=== PATIENT | female | born 1965 | race American Indian/Alaskan Native ===

== ENCOUNTER 2016-07-19 12:01 | Day surgery (SDC) | payer MEDICARE ==
[~2016-07-19 12:01] MED LIST: ANCEF/STERILE WATER 2 GM/20 ML 2 GM/20 ML SYRINGE IV NR; NACL 0.9% 1000 ML 1,000 ML IV SCH
[2016-07-19] MEDS ORDERED: HEPARIN 10,000 UNITS/10 ML ONE (15:14)
[2016-07-19] MEDS ORDERED: HEPARIN/NS 5000 UNIT/500ML(CATH LAB) 500 ML IR ONE ×2 (15:14→16:45)
[2016-07-19] MEDS ORDERED: ANCEF/STERILE WATER 2 GM/20 ML 2 GM/20 ML SYRINGE IV ONE (15:14)
[2016-07-19] MEDS ORDERED: NACL 0.9% 250ML 250 ML ONE (15:15)
[2016-07-19] MEDS ORDERED: SUBLIMAZE ONE (15:15)
[2016-07-19] MEDS ORDERED: VERSED ONE (15:15)
[2016-07-19] MEDS ORDERED: XYLOCAINE 1%/ EPI 1:100,000 INFILTRATI ONE (15:16)
--- NOTE | 2016-07-19 18:01 | Short Stay Summary ---
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 - Allergies and Medications Current Medications: Allergies No Known Allergies Allergy (Verified 07/19/16 12:33) Home Medications Medication Instructions Recorded Confirmed Last Taken Type ALPRAZolam [Xanax TAB] 0.25 mg PO DAILY 07/19/16 07/19/16 07/18/16 History Carvedilol [Coreg] 6.25 mg PO BID 07/19/16 07/19/16 07/18/16 History Cinacalcet HCl [Sensipar] 90 mg PO QHS 07/19/16 07/19/16 07/18/16 History Digoxin [Lanoxin] 0.125 mg PO DAILY 07/19/16 07/19/16 07/18/16 History Dilayvite 800 mg PO DAILY 07/19/16 07/18/16 History Esomeprazole Magnesium [NexIUM] 40 mg PO QDAY 07/19/16 07/19/16 07/18/16 History Fluticasone [Flonase] 2 spray NS QDAY 07/19/16 07/19/16 07/18/16 History Loratadine [Allergy Relief] 10 mg PO Q48H 07/19/16 07/19/16 07/18/16 History Sevelamer Carbonate [Renvela] 800 mg PO TIDWM 07/19/16 07/19/16 07/18/16 History traMADol [Ultram] 50 mg PO Q4HR PRN 07/19/16 07/19/16 Unknown History Active Medications Cefazolin Sodium (Ancef/Sterile Water 2 Gm/20 Ml) 2 gm in 20 mls @ 80 mls/hr IV PREOP NR PRN Reason: Protocol Stop: 07/19/16 23:00 - Physical exam General appearance: no acute distress HEENT: Other (severe facial and head edema) Lungs: Normal air movement Extremities: abnormal (large LUE AVF) - Brief post op/procedure progress note Date of procedure: 07/19/16 Pre-op diagnosis: SVC syndrome Post-op diagnosis: same Procedure: angioplasty Anesthesia: local (w/ conscious sedation) Surgeon: SANJEEV JASSO Estimated blood loss: minimal Condition: stable - Hospital course Hospital course: Ready for discharge. - Disposition Condition at discharge: Stable Disposition: DC-01 TO HOME OR SELFCARE - Discharge Diagnoses (1) SVC syndrome Status: Acute Short Stay Discharge Plan Activity: advance as tolerated Weight Bearing Status: Weight Bear as Tolerated Diet: renal Wound: keep clean and dry Follow up with: PRIMARY CARE, [Primary Care Provider] - 7 Days
--- NOTE | 2016-07-19 18:12 | Operative Report ---
Operative Report Operative Report: EXAM: 1. Ultrasound-guided access of the left arm AV fistula towards the venous outflow 2. Fistulogram 3. Placement of a 6 [place]yanese sheath which was upsized to a 7 [place]ese sheath 4. Angioplasty of the superior vena cava with a 9 mm angioplasty balloon 5. Angioplasty of the superior vena cava with an 8 mm cutting angioplasty balloon 6. Angioplasty of the superior vena cava with a 10 mm conquest angioplasty balloon 7. Angioplasty of the cephalic arch with a 10 mm conquest angioplasty balloon 8. Angioplasty of the mid cephalic vein with a 10 mm conquest angioplasty balloon DATE: 07/19/16 CONSULTING NETWORKING ENGINEER: SANJEEV JASSO MD INDICATION: 50-year-old female with left upper extremity AV fistula with SVC syndrome. MEDICATIONS: Please see nursing report for full details. DEVICES: 8 mm cutting angioplasty balloon 9 mm angioplasty balloon 10 mm conquest angioplasty balloon CONTRAST: Please see Lab report for full details. PROCEDURE: The risks, benefits, and alternatives were discussed with the patient; written informed consent was obtained. The patient's left upper extremity was prepped and draped in a sterile fashion. Ultrasound was used to evaluate the left upper extremity AV fistula which was patent. Under direct ultrasound guidance, the left upper extremity AV fistula was accessed with a 21-gauge micropuncture needle. 0.018 wire was passed to the AV fistula. Needle was exchanged for transitional dilator. Transitional dilator was exchanged over 0.035 inch wire for 6 [place]ese sheath. Digital subtraction angiography was performed demonstrating a left upper extremity brachiocephalic emilie fistula with numerous peripheral aneurysms. The midportion of the cephalic vein has a focal 40% narrowing. There is a focal 40 % narrowing in the cephalic arch. The left innominate vein is patent. The SVC is not filling directly, and the azygous vein is filling through collaterals. The sheath was then upsized to a 7 [place] 45 cm [place] destination positioned in the left innominate vein. Digital subtraction angiography was performed demonstrating the SVC occlusion. Using a vertebral catheter and a Glidewire advantage, the SVC occlusion was crossed. Digital subtraction angiography was performed in the SVC confirming patency of the SVC a few centimeters below the azygous vein. The SVC at the level of the azygous vein was occluded. Wire was passed into the IVC. 9 mm angioplasty balloon was advanced over the wire and just perform angioplasty of the superior vena cava. This was performed at [facility] pressure and slightly above burst pressure, but the focal narrowings persisted. Wire was exchanged for a 0.018 inch treasure wire and 8 mm cutting balloon was advanced over the wire and used to perform cutting angioplasty at the area of focal narrowing. Digital subtraction angiography demonstrated improved flow without any extravasation or pseudoaneurysm. Afterwards, wire was exchanged for 0.035 inch Glidewire advantage and 10 mm angioplasty balloon was advanced over the wire. Conquest balloon was used to perform angioplasty of the SVC at high pressure for prolonged period of time. Digital subtraction angiography was performed demonstrating improved flow into the SVC. There is still a focal narrowing at the level of the azygous vein, but there is now flow through the SVC. 10 mm angioplasty balloon was then used to perform angioplasty of the cephalic arch and the mid cephalic vein. Digital subtraction angiography demonstrated resolution of the narrowing at these areas. 7 Gu[place]ese sheath was then removed and the site was closed with 3-0 Vicryl. Patient tolerated the procedure well. No immediate postprocedural complication. FINDINGS: Please see procedure note above IMPRESSION: 1. Successful cutting balloon angioplasty and high pressure angioplasty balloon angioplasty of the SVC with yarsanism of flow into the SVC. 2. Angioplasty of the midportion of the cephalic vein and cephalic arch with a 10 mm angioplasty balloon.
[2016-07-19 18:23] VITALS: BP 158/100
--- NOTE | 2016-07-20 07:47 | Vascular Lab Report ---
MISCELLANEOUS VESSEL IDENTIFICATION: The arteriovenous access was identified in the left upper extremity and under real-time ultrasound guidance was cannulated. IMPRESSION: Successful ultrasound guided cannulation of the arteriovenous access site.
== END 2016-07-19 18:35 | disposition home or self-care (01) ==
LOC: OPU 12:01
PROVIDERS: ATTEND Radiology Diagnostic Radiology
DX: T82.898A Other specified complication of vascular prosthetic devices, implants and grafts, initial encounter (principal); I12.0 Hypertensive chronic kidney disease with stage 5 chronic kidney disease or end stage renal disease; N18.6 End stage renal disease; N17.9 Acute kidney failure, unspecified; Z99.2 Dependence on renal dialysis; Z79.899 Other long term (current) drug therapy; Z98.51 Tubal ligation status; Z98.890 Other specified postprocedural states; Z83.3 Family history of diabetes mellitus
CPT/HCPCS: 36415; 36902; 76937; 84132; C1725; C1751; C1769; C1887; C1894; J0690; J1644; J2250; J3010; J7050; Q9967

== ENCOUNTER 2018-05-23 06:39 | Day surgery (SDC) | payer MEDICARE ==
--- NOTE | 2018-05-22 15:35 | Anesthesia Consultation ---
Anesthesia Consult and Med Hx - Airway ROM Head & Neck: Adequate Mental/Hyoid Distance: Adequate Mallampati Class: Class II Intubation Access Assessment: Probably Good - Pulmonary Exam CTA: Yes - Cardiac Exam Cardiac Exam: RRR - Pre-Operative Health Status ASA Pre-Surgery Classification: ASA4 Proposed Anesthetic Plan: General, Spinal - Pre-Anesthesia Comment Pre-Anesthesia Comments: Discussed SAB and GETA. Risks, Benefits, Options explained. Pt prefers to be knocked out and not know anything. Agrees to either - Pulmonary Hx Smoking: Yes (1 pack / week) Hx Respiratory Symptoms: Yes ((+) TB - Resolved w/ Meds.Chronic bronchitis, no problems in several months) Hx Pneumonia: Yes (Several years. Episode when diagnosed with HIV) Hx Sleep Apnea: Yes - Cardiovascular System Hx Hypertension: Yes - Central Nervous System Hx Psychiatric Problems: Yes (Schizophrenia) - Endocrine Hx Renal Disease: Yes Hx End Stage Renal Disease: Yes Hx Liver Disease: Yes (Hep C) - Hematic Hx Anemia: Yes - Other Systems Hx Alcohol Use: Yes (1st stated 32 beers/week. Changed account to case/month) Hx Substance Use: Yes (Former cocaine use. Quit ~1yr ago) Hx Cancer: No Hx Obesity: No - Additional Comments Anesthesia Medical History Comments: Pt with h/o chronic pain hips and knees. Ambulatory with crutches. H/O: (+)HIV, (+)TB, (+) Hep C, (+) Cocaine, alcohol, and smoker, Anemia, HTN, Bronchitis
[2018-05-23 07:38] LABS: INR 0.98 (0.87-1.13)
[2018-05-23] MEDS ORDERED: ANCEF/STERILE WATER 2 GM/20 ML 2 GM/20 ML SYRINGE IV ONE (08:21)
[2018-05-23] MEDS ORDERED: HEPARIN 10,000 UNITS/10 ML ONE (08:21)
[2018-05-23] MEDS ORDERED: HEPARIN/NS 5000 UNIT/500ML(CATH LAB) 1,000 ML IR ONE (08:21)
[2018-05-23] MEDS ORDERED: XYLOCAINE 2% INFILTRATI ONE (08:21)
[2018-05-23] MEDS: NACL 0.9% 500 ML 500 ML IV SCH ×2 (08:40→09:20)
--- NOTE | 2018-05-23 09:00 | Short Stay Summary ---
Short Stay Documentation Date of service: 05/23/18 Narrative H&P: 52 year old female with ESRD and AVF malfunction with SVC syndrome. - History Principal diagnosis: AVF malfunction Past Medical History: CAD (s/p stent), diabetes, dialysis, GERD, other (chronic SVC syndrome) Past Surgical History: Other (AVF creation ; coronary stenting) Social history: lives with family - Allergies and Medications Current Medications: Allergies No Known Allergies Allergy (Verified 07/19/16 12:33) Home Medications Medication Instructions Recorded Confirmed Last Taken Type ALPRAZolam [Xanax TAB] 0.25 mg PO DAILY 07/19/16 05/23/18 05/19/18 History 0.25mg Fluticasone [Flonase] 2 spray NS QDAY 07/19/16 05/23/18 05/22/18 History 2 sprays Loratadine [Allergy Relief] 10 mg PO Q48H 07/19/16 05/23/18 05/22/18 History 10mg Sevelamer Carbonate [Renvela] 800 mg PO TIDWM 07/19/16 05/23/18 05/22/18 History 800mg Albuterol Sulfate [Albuterol 2 puff INHALATION 4XD PRN 05/23/18 05/23/18 04/26/18 History Sulfate Hfa] 2 p\uffs Aspirin EC [Aspirin Enteric Coated 81 mg PO DAILY 05/23/18 05/23/18 05/22/18 Hi story TAB] 81mg Atorvastatin [Lipitor] 80 mg PO DAILY 05/23/18 05/23/18 05/22/18 History 80mg Lisinopril [Prinivil] 5 mg PO DAILY 05/23/18 05/23/18 05/21/18 History 5mg Loratadine [Claritin] 10 mg PO DAILY 05/23/18 05/23/18 05/22/18 History 10mg Metoprolol [Lopressor TAB] 0.5 tab PO BID 05/23/18 05/23/18 05/22/18 History 0.5mg Mv,Darrion,Min/Iron/Folic Acid/Lut 1 tab PO DAILY 05/23/18 05/23/18 05/22/18 History [Complete Multi Tablet] 1 tab Ticagrelor [Brilinta] 90 mg PO BID 05/23/18 05/23/1805/22/19 History 90mg hydrOXYzine HCL [Atarax] 25 mg PO HS PRN 05/23/18 05/23/18 05/19/18 History 25mg traMADol [Ultram 50 MG tab] 50 mg PO Q6H 05/23/18 05/23/18 05/22/18 History 50mg Active Medications Sodium Chloride (Nacl 0.9% 500 Ml) 500 mls @ 50 mls/hr IV DIRECT LUIS ARMANDO Last Admin: 05/23/18 08:40 Dose: 50 mls/hr Documented by: - Physical exam General appearance: other (mild SVC syndrome) Lungs: Normal air movement Gastrointestinal: normal Extremities: normal temperature, normal color, abnormal (large aneurysmal AVF, stable) - Brief post op/procedure progress note Date of procedure: 05/23/18 Pre-op diagnosis: ESRD, AVF malfunction Post-op diagnosis: same Procedure: angioplasty Anesthesia: local (w/ conscious sed) Surgeon: SANJEEV JASSO Estimated blood loss: minimal Condition: stable - Hospital course Hospital course: Tolerated procedure well. - Disposition Condition at discharge: Stable Disposition: DC-01 TO HOME OR SELFCARE - Discharge Diagnoses (1) Malfunction of arteriovenous shunt Status: Acute (2) SVC syndrome Status: Acute Short Stay Discharge Plan Activity: advance as tolerated Weight Bearing Status: Weight Bear as Tolerated Diet: renal Wound: keep clean and dry Additional Instructions: follow up with Primary Medical Doctor in 1 week, return to Emergency Room(ER) for medical emergency. Follow up with: BENIGNO ABEL MD [Primary Care Provider] - 7 Days Forms: AVG Arteriogram D/CInstruction
[2018-05-23] MEDS: SUBLIMAZE ONE ×2 (09:20→09:45)
[2018-05-23] MEDS: VERSED ONE ×2 (09:20→09:45)
[2018-05-23] MEDS ORDERED: BENADRYL ONE (09:37)
[2018-05-23] MEDS ORDERED: SOLU-Medrol ONE (09:38)
[2018-05-23 10:56] VITALS: BP 168/105
--- NOTE | 2018-05-23 11:29 | Operative Report ---
Operative Report Operative Report: EXAM: 1. Ultrasound guided access of the AV fistula towards the venous outflow 2. Fistulogram. 3. Selection of the IVC. 4. Angioplasty of the superior SVC and peripheral left innominate vein with a 8 mm x 2 cm cutting angioplasty balloon and 12 mm x 60 mm angioplasty balloon 5. Angioplasty of the cephalic arch (central cephalic vein) with a 12 mm x 60 mm angioplasty DATE: 05/23/18 GREETING CARD EDITOR: SANJEEV JASSO MD INDICATION: Symptomatic SVC syndrome with AV fistula malfunction MEDICATIONS: Please see nursing report for full details. DEVICES: 8 mm x 2 cm cutting angioplasty balloon 12 mm x 6 cm angioplasty balloon PROCEDURE: The risks, benefits, and alternatives of the procedure were discussed and written informed consent was obtained. The patient was transported in stable condition to the angiography suite. The patient's left arm AV fistula was assessed by ultrasound and was patent. The patient was prepped and draped in a sterile fashion. Under ultrasound guidance, the left arm AV brachiocephalic fistula was accessed with a 21-gauge micropuncture needle. The area was anesthetized prior to access. 0.018 inch wire was advanced through the micropuncture needle into the fistula and then the needle was exchanged for a 5 [place] transitional dilator. The inner dilator and wire were removed and a 0.035 inch wire was advanced through the venous outflow. The transitional dilator was exchanged for a 7 [place] short sheath. Fistulogram was performed of the venous outflow and central veins. The mid cephalic vein was patent. The central cephalic vein had a 60% narrowing (at the cephalic arch). There were numerous collaterals arising from the left subclavian and innominate vein. The left subclavian and mid and peripheral innominate vein were patent. The central portion of the left innominate vein and the superior portion of the SVC was 90% narrowed. The rest of the SVC was patent. 8 mm x 2 cm cutting angioplasty balloon was used to perform cutting angioplasty of the SVC and central left innominate vein. 12 mm x 6 cm angioplasty balloon was used to perform angioplasty of the SVC and central left innominate vein and then the cephalic arch. Digital subtraction angiography demonstrated 20-30% residual narrowing of the left innominate vein/superior portion of the SVC and 10-20% residual narrowing of the cephalic arch. The wire was removed and the site was closed with a 3-0 Vicryl suture. The sheath was then removed. Hemostasis was achieved with slight manual c ompression. The patient was transported from the angiography suite to the floor in stable condition. IMPRESSION: 1. Successful central dialysis access angioplasty. 2. Successful peripheral dialysis access angioplasty
== END 2018-05-23 11:30 | disposition home or self-care (01) ==
LOC: CATHLABREC 06:39
PROVIDERS: ATTEND Radiology Diagnostic Radiology
DX: T82.898A Other specified complication of vascular prosthetic devices, implants and grafts, initial encounter (principal); T82.591A Other mechanical complication of surgically created arteriovenous shunt, initial encounter; I12.0 Hypertensive chronic kidney disease with stage 5 chronic kidney disease or end stage renal disease; N18.6 End stage renal disease; G47.30 Sleep apnea, unspecified; K21.9 Gastro-esophageal reflux disease without esophagitis; F41.9 Anxiety disorder, unspecified; E78.00 Pure hypercholesterolemia, unspecified; F17.210 Nicotine dependence, cigarettes, uncomplicated; Z79.899 Other long term (current) drug therapy; Z79.82 Long term (current) use of aspirin; Z99.2 Dependence on renal dialysis; Z72.89 Other problems related to lifestyle; Z98.890 Other specified postprocedural states; Z95.5 Presence of coronary angioplasty implant and graft; Z86.2 Personal history of diseases of the blood and blood-forming organs and certain disorders involving the immune mechanism; Y83.8 Other surgical procedures as the cause of abnormal reaction of the patient, or of later complication, without mention of misadventure at the time of the procedure; Y92.89 Other specified places as the place of occurrence of the external cause
CPT/HCPCS: 36415; 36902; 76937; 84132; 85610; 85730; 99156; 99157; C1725; C1751; C1769; C1894; J0690; J1200; J1644; J2250; J2930; J3010; J7040; Q9967

== ENCOUNTER 2018-08-22 08:55 | Day surgery (SDC) | payer MEDICARE ==
[2018-08-22] MEDS ORDERED: HEPARIN/NS 5000 UNIT/500ML(CATH LAB) 1,000 ML IR ONE (09:56)
[2018-08-22] MEDS ORDERED: VERSED ONE ×2 (09:56→11:29)
[2018-08-22] MEDS ORDERED: SUBLIMAZE ONE (09:56)
[2018-08-22] MEDS ORDERED: HEPARIN 10,000 UNITS/10 ML ONE (09:57)
[2018-08-22] MEDS ORDERED: ANCEF/STERILE WATER 2 GM/20 ML 0 GM/0 ML SYRINGE IV ONE (09:57)
[2018-08-22] MEDS ORDERED: XYLOCAINE 2% INFILTRATI ONE (09:57)
[2018-08-22] MEDS ORDERED: SOLU-Medrol ONE (10:02)
[2018-08-22] MEDS ORDERED: BENADRYL ONE (10:02)
[2018-08-22] MEDS ORDERED: PEPCID IV ONE (10:05)
[2018-08-22] MEDS ORDERED: NACL 0.9% 500 ML 500 ML ONE (10:22)
[2018-08-22] MEDS ORDERED: APRESOLINE ONE (11:13)
--- NOTE | 2018-08-22 11:42 | Short Stay Summary ---
Short Stay Documentation Date of service: 08/22/18 Narrative H&P: 52 year old female with recurrent SVC syndrome and ESRD who presents for angioplasty. - History Principal diagnosis: SVC syndrome, AVF malfunction H&P: obtained from office - Allergies and Medications Current Medications: Allergies No Known Allergies Allergy (Verified 07/19/16 12:33) Home Medications Medication Instructions Recorded Confirmed Last Taken Type ALPRAZolam [Xanax TAB] 0.25 mg PO DAILY 07/19/16 08/22/18 08/21/18 History Fluticasone [Flonase] 2 spray NS QDAY PRN 07/19/16 08/22/18 1 Week Ago History ~08/15/18 Sevelamer Carbonate [Renvela] 800 mg PO TIDWM 07/19/16 08/22/18 08/21/18 History Albuterol Sulfate [Albuterol 2 puff INHALATION 4XD PRN 05/23/18 08/22/18 08/19/18 History Sulfate Hfa] Aspirin EC 81 mg PO DAILY 05/23/18 08/22/18 08/21/18 History Atorvastatin [Lipitor] 80 mg PO DAILY 05/23/18 08/22/18 08/21/18 History Lisinopril [Prinivil] 5 mg PO DAILY 05/23/18 08/22/18 08/21/18 History Loratadine [Claritin] 10 mg PO DAILY 05/23/18 08/22/18 08/21/18 History Metoprolol [Lopressor TAB] 0.5 tab PO BID 05/23/18 08/22/18 08/21/18 History Mv,Darrion,Min/Iron/Folic Acid/Lut 1 tab PO DAILY 05/23/18 08/22/18 08/21/18 History [Complete Multi Tablet] Ticagrelor [Brilinta] 90 mg PO BID 05/23/18 08/22/18 08/21/18 History hydrOXYzine HCL [Atarax] 25 mg PO HS PRN 05/23/18 08/22/18 08/21/18 History traMADol [Ultram 50 MG tab] 50 mg PO Q6H 05/23/18 08/22/18 08/21/18 History - Physical exam General appearance: no acute distress Lungs: Normal air movement (some coughing with supine position) Gastrointestinal: normal Extremities: normal temperature, normal color - Brief post op/procedure progress note Date of procedure: 08/22/18 Pre-op diagnosis: ESRD with SVC syndrome and AVF malfunction Post-op diagnosis: same Procedure: Peripheral dialysis access angioplasty Central dialysis access angioplasty Anesthesia: local (w/ conscious sedation) Surgeon: SANJEEV JASSO Estimated blood loss: minimal Condition: stable - Hospital course Hospital course: Ready for discharge after 1 hr - Disposition Condition at discharge: Stable Disposition: [place]-01 TO HOME OR SELFCARE - Discharge Diagnoses (1) Malfunction of arteriovenous shunt Status: Acute (2) SVC syndrome Status: Acute Short Stay Discharge Plan Activity: advance as tolerated Weight Bearing Status: Weight Bear as Tolerated Diet: renal Wound: keep clean and dry Follow up with: BENIGNO ABEL MD [Primary Care Provider] - 7 Days
--- NOTE | 2018-08-22 11:49 | Operative Report ---
Operative Report Operative Report: EXAM: 1. Ultrasound guided access of the AV fistula towards the venous outflow 2. Fistulogram. 3. Selection of the IVC. 4. Angioplasty of the superior SVC and peripheral left innominate vein with a 8 mm x 2 cm cutting angioplasty balloon and 12 mm x 60 mm angioplasty balloon 5. Angioplasty of the cephalic arch (central cephalic vein) with a 8 mm x 2 cm cutting angioplasty balloon and 12 mm x 60 mm angioplasty DATE: 08/22/18 INTERNET MARKETING EXECUTIVE: SANJEEV JASSO MD INDICATION: Symptomatic SVC syndrome with AV fistula malfunction MEDICATIONS: Please see nursing report for full details. DEVICES: 8 mm x 2 cm cutting angioplasty balloon 12 mm x 6 cm angioplasty balloon PROCEDURE: The risks, benefits, and alternatives of the procedure were discussed and written informed consent was obtained. The patient was transported in stable condition to the angiography suite. The patient's left arm AV fistula was a ssessed by ultrasound and was patent. The patient was prepped and draped in a sterile fashion. Under ultrasound guidance, the left arm AV brachiocephalic fistula was accessed with a 21-gauge micropuncture needle. The area was anesthetized prior to access. 0.018 inch wire was advanced through the micropuncture needle into the fistula and then the needle was exchanged for a 5 [place] transitional dilator. The inner dilator and wire were removed and a 0.035 inch wire was advanced through the venous outflow. The transitional dilator was exchanged for a 7 [place] short sheath. Fistulogram was performed of the venous outflow and central veins. The central cephalic vein had a 60% narrowing (at the cephalic arch). There were numerous collaterals arising from the left subclavian and innominate vein. The left subclavian and mid and peripheral innominate vein were patent. The central portion of the left innominate vein and the superior portion of the SVC was 90% narrowed. The rest of the SVC was patent. 8 mm x 2 cm cutting angioplasty balloon was used to perform cutting angioplasty of the SVC and central left innominate vein and cephalic arch. 12 mm x 6 cm angioplasty balloon was used to perform angioplasty of the SVC and central left innominate vein and then the cephalic arch. Digital subtraction angiography demonstrated 20-30% residual narrowing of the left innominate vein/superior portion of the SVC and 20% residual narrowing of the cephalic arch. The wire was removed and the site was closed with a 3-0 Vicryl suture. The sheath was then removed. Hemostasis was achieved with slight manual compression. The patient was transported from the angiography suite to the floor in stable condition. IMPRESSION: 1. Successful central dialysis access angioplasty. 2. Successful peripheral dialysis access angioplasty
[2018-08-22 12:58] VITALS: BP 139/89
== END 2018-08-22 13:05 | disposition home or self-care (01) ==
LOC: CATHLABREC 08:55
PROVIDERS: ATTEND Radiology Diagnostic Radiology
DX: T82.590A Other mechanical complication of surgically created arteriovenous fistula, initial encounter (principal); I12.0 Hypertensive chronic kidney disease with stage 5 chronic kidney disease or end stage renal disease; N18.6 End stage renal disease; I87.1 Compression of vein; E78.00 Pure hypercholesterolemia, unspecified; G47.30 Sleep apnea, unspecified; K21.9 Gastro-esophageal reflux disease without esophagitis; F41.9 Anxiety disorder, unspecified; Z98.890 Other specified postprocedural states; Z79.899 Other long term (current) drug therapy; Z79.82 Long term (current) use of aspirin; Z72.89 Other problems related to lifestyle; Z86.2 Personal history of diseases of the blood and blood-forming organs and certain disorders involving the immune mechanism; Y83.8 Other surgical procedures as the cause of abnormal reaction of the patient, or of later complication, without mention of misadventure at the time of the procedure; Y92.89 Other specified places as the place of occurrence of the external cause
CPT/HCPCS: 36415; 36902; 76937; 84132; 99156; 99157; C1725; C1769; C1894; J0360; J1200; J1644; J2250; J2930; J3010; J7040; J0690; Q9967

== ENCOUNTER 2019-12-09 07:11 | Day surgery (SDC) | payer MEDICARE ==
[2019-12-09] MEDS ORDERED: SODIUM CHLORIDE 0.9% 500 ML 500 ML ONE (08:59)
[2019-12-09] MEDS ORDERED: methylPREDNISolone Sod Succinate 125 MG/2 ML INJ ONE (09:38)
[2019-12-09] MEDS ORDERED: diphenhydrAMINE 50 MG/ML VIAL ONE (09:38)
[2019-12-09] MEDS ORDERED: MIDAZOLAM 2 MG/2 ML INJ ONE (09:39)
[2019-12-09] MEDS ORDERED: fentaNYL 100 MCG/2 ML INJ ONE (09:39)
[2019-12-09] MEDS ORDERED: LIDOCAINE 1%/EPINEPHRINE 1:100,000 VIAL (20 ML) INFILTRATI ONE (09:40)
[2019-12-09] MEDS ORDERED: HEPARIN 10,000 UNITS/10 ML VIAL ONE (09:40)
[2019-12-09] MEDS ORDERED: HEPARIN/NS 5000 UNIT/500ML 1,000 ML IR ONE (09:40)
[2019-12-09] MEDS ORDERED: diphenhydrAMINE 50 MG/ML VIAL IV ONE (10:00)
[2019-12-09] MEDS ORDERED: FAMOTIDINE 20 MG/2 ML INJ IV ONE (10:00)
[2019-12-09] MEDS ORDERED: methylPREDNISolone Sod Succinate 125 MG/2 ML INJ IV ONE (10:00)
[2019-12-09] MEDS ORDERED: SODIUM CHLORIDE 0.9% 500 ML 500 ML IV SCH (10:00)
--- NOTE | 2019-12-09 20:45 | Short Stay Summary ---
Short Stay Documentation Date of service: 12/09/19 Narrative H&P: 54-year-old female with end-stage renal disease and left upper extremity AV access malfunction with recurrent SVC syndrome with head and neck swelling who presents for evaluation and treatment. - History Principal diagnosis: AV fistula malfunction Past Medical History: dialysis, ESRD Past Surgical History: Other (AV access fistulograms and surgery) Social history: no significant social history - Allergies and Medications Current Medications: Allergies No Known Allergies Allergy (Verified 07/19/16 12:33) Home Medications Medication Instructions Recorded Confirmed Last Taken Type ALPRAZolam [Xanax TAB] 0.25 mg PO DAILY 07/19/16 01/28/19 01/27/19 History .25mg Fluticasone [Flonase] 2 spray NS QDAY PRN 07/19/16 01/28/19 11/01/18 History 2 sprays Albuterol Sulfate [Albuterol 2 puff INHALATION 4XD PRN 05/23/18 01/28/19 01/22/19 History Sulfate Hfa] 2 puffs Aspirin EC [Halfprin EC] 81 mg PO DAILY 05/23/18 01/28/19 01/27/19 History 81 mg Atorvastatin [Lipitor] 80 mg PO DAILY 05/23/18 01/28/19 01/27/19 History 80 mg Loratadine (Nf) [Claritin (Nf)] 10 mg PO DAILY 05/23/18 01/28/19 10/13/18 History 10 mg Metoprolol [Lopressor TAB] 0.5 tab PO BID 05/23/18 01/28/19 01/27/19 History 12.5mg Mv,Darrion,Min/Iron/Folic Acid/Lut 1 tab PO DAILY 05/23/18 01/28/19 01/26/19 History [Complete Multi Tablet] 1 tab Ticagrelor [Brilinta] 90 mg PO BID 05/23/18 01/28/19 01/27/19 History 90 mg lisinopriL [Prinivil] 5 mg PO DAILY 05/23/18 01/28/19 01/27/19 History 5 mg traMADoL [Ultram 50 MG tab] 50 mg PO Q6H 05/23/18 01/28/19 01/26/19 History 50 mg Ferric Citrate (Nf) [Auryxia] 4 tab PO AC 01/28/19 01/28/19 01/27/19 History 4 tabs Hydralazine HCl 50 mg PO DAILY 01/28/19 01/28/19 01/27/19 History 50 mg NIFEdipine XL [Procardia Xl] 60 mg PO DAILY 01/28/19 01/28/19 01/27/19 History 60 mg carvediloL [Coreg] 25 mg PO BID 01/28/19 01/28/19 01/27/19 History 25 mg - Physical exam General appearance: mild distress (Head and neck swelling) HEENT: Other (head and neck swelling) Lungs: Other (good air movement) Gastrointestinal: normal Extremities: normal temperature, normal color - Brief post op/procedure progress note Date of procedure: 12/10/19 Pre-op diagnosis: AVF malfunction Post-op diagnosis: same Procedure: 1. Ultrasound-guided access of the left arm cephalic vein of the AV fistula 2. Fistulogram 3. Selection of the SVC with angiography. 4. Angioplasty of the left distal innominate vein/proximal SVC with a 8 mm x 2 cm cutting angioplasty balloon and then a 12 mm x 4 cm iNPACT balloon 5. Angioplasty of the cephalic arch with a 12 mm x 4 cm iNPACT balloon Anesthesia: local Surgeon: SANJEEV JASSO Estimated blood loss: minimal Condition: stable - Hospital course Hospital course: Tolerated the procedure well. No immediate postprocedural complications. - Disposition Condition at discharge: Stable Disposition: DC-01 TO HOME OR SELFCARE - Discharge Diagnoses (1) ESRD (end stage renal disease) on dialysis Status: Acute (2) Malfunction of arteriovenous shunt Status: Acute (3) SVC syndrome Status: Acute Short Stay Discharge Plan Activity: advance as tolerated Weight Bearing Status: Weight Bear as Tolerated Diet: renal Wound: keep clean and dry Follow up with: BENIGNO ABEL MD [Primary Care Provider] - 7 Days
--- NOTE | 2019-12-09 20:45 | Operative Report ---
Operative Report Operative Report: 1. Ultrasound guided access of the AV fistula towards the venous outflow 2. Fistulogram. 3. Selection of the IVC. 4. Angioplasty of the superior SVC and peripheral left innominate vein with a 8 mm x 2 cm cutting angioplasty balloon and 12 mm x 40 mm iNPACT balloon 5. 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 DEVICES: 8 mm x 2 cm cutting angioplasty balloon 12 mm x 4 cm iNPACT angioplasty balloon PROCEDURE: The risks, benefits, and alternatives of the procedure were discussed and written informed consent was obtained. The patient was transported in stable condition to the angiography suite. The patient's left arm AV fistula was assessed by ultrasound and was patent. The patient was prepped and draped in a sterile fashion. Under ultrasound guidance, the left arm AV brachiocephalic fistula was accessed with a 21-gauge micropuncture needle. The area was anesthetized prior to access. 0.018 inch wire was advanced through the micropuncture needle into the fistula and then the needle was exchanged for a 5 Moroccan transitional dilator. The inner dilator and wire were removed and a 0.035 inch wire was advanced through the venous outflow. The transitional dilator was exchanged for a 7 Moroccan short sheath. Fistulogram was performed of the venous outflow and central veins. The central cephalic vein had a 50% narrowing (at the cephalic arch). There were numerous collaterals arising from the left subclavian and innominate vein. The left subclavian and mid and peripheral innominate vein were patent. The central portion of the left innominate vein and the superior portion of the SVC was 80% narrowed. The rest of the SVC was patent. 8 mm x 2 cm cutting angioplasty balloon was used to perform cutting angioplasty of the SVC and central left innominate vein. Wire was exchanged for a Glidewire Advantage. Sheath was then upsized for a 9 Fr sheath. 12 mm x 4 cm iNPACT angioplasty balloon was used to perform angioplasty of the SVC and central left innominate vein and then the cephalic arch. Digital subtraction angiography demonstrated 30% residual narrowing of the left innominate vein/superior portion of the SVC and 20% residual narrowing of the cephalic arch. The wire was removed and the site was closed with a 3-0 Vicryl suture. The sh eath was then removed. Hemostasis was achieved with slight manual compression. The patient was transported from the angiography suite to the floor in stable condition. IMPRESSION: 1. Successful central dialysis access angioplasty. 2. Successful peripheral dialysis access angioplasty
[2019-12-11 14:33] LABS: BUN/Creatinine Ratio 4; Blood Urea Nitrogen 46 mg/dL (7-17); Calcium 10.7 mg/dL (8.4-10.2)
== END 2019-12-09 07:12 | disposition home or self-care (01) ==
LOC: CATHLABREC 07:11
PROVIDERS: ATTEND Surgery Vascular Surgery
DX: T82.591A Other mechanical complication of surgically created arteriovenous shunt, initial encounter (principal); I12.0 Hypertensive chronic kidney disease with stage 5 chronic kidney disease or end stage renal disease; I87.1 Compression of vein; N18.6 End stage renal disease; K21.9 Gastro-esophageal reflux disease without esophagitis; G47.30 Sleep apnea, unspecified; F41.9 Anxiety disorder, unspecified; Z79.899 Other long term (current) drug therapy; Z79.82 Long term (current) use of aspirin; Z87.01 Personal history of pneumonia (recurrent); Z98.890 Other specified postprocedural states; Z72.89 Other problems related to lifestyle; Z95.5 Presence of coronary angioplasty implant and graft; Z86.2 Personal history of diseases of the blood and blood-forming organs and certain disorders involving the immune mechanism
CPT/HCPCS: 36415; 36902; 36907; 80048; C1725; C1769; C1894; J1200; J1644; J2930; J7040; J2250; J3010; Q9967

== ENCOUNTER 2020-10-14 10:14 | Day surgery (SDC) | payer MEDICARE ==
[2020-10-14] MEDS ORDERED: SODIUM CHLORIDE 0.9% 500 ML 500 ML IV SCH (11:00)
--- NOTE | 2020-10-14 13:51 | Short Stay Summary ---
Short Stay Documentation Date of service: 10/14/20 - History Principal diagnosis: Malfunctioning dialysis access Past Medical History: dialysis, ESRD Past Surgical History: Other (Left upper arm AV fistula with central venous stenosis) Social history: no significant social history - Allergies and Medications Current Medications: Allergies No Known Allergies Allergy (Verified 07/19/16 12:33) Home Medications Medication Instructions Recorded Confirmed Last Taken Type ALPRAZolam [Xanax TAB] 0.25 mg PO DAILY 07/19/16 10/14/20 10/13/20 History 0.25mg Albuterol Sulfate [Albuterol 2 puff INHALATION 4XD PRN 05/23/18 10/14/20 10/12/20 History Sulfate Hfa] 2 puffs Aspirin EC [Halfprin EC] 81 mg PO DAILY 05/23/18 10/14/20 10/13/20 History 81 mg Atorvastatin [Lipitor] 80 mg PO DAILY 05/23/18 10/14/20 10/13/20 History 80 mg Mv,Darrion,Min/Iron/Folic Acid/Lut 1 tab PO DAILY 05/23/18 10/14/20 10/09/20 History [Complete Multi Tablet] 1 tab lisinopriL [Prinivil] 5 mg PO DAILY 05/23/18 10/14/20 10/13/20 History 5 mg traMADoL [Ultram 50 MG tab] 50 mg PO Q6H 05/23/18 10/14/20 10/13/20 History 50 mg Hydralazine HCl 50 mg PO DAILY 01/28/19 10/14/20 10/13/20 History 50 mg NIFEdipine XL [Procardia Xl] 60 mg PO DAILY 01/28/19 10/14/20 10/13/20 History 60 mg carvediloL [Coreg] 25 mg PO BID 01/28/19 10/14/20 10/13/20 History 1000 Active Medications Sodium Chloride (Nacl 0.9% 500 Ml) 500 mls @ 50 mls/hr IV DIRECT LUIS ARMANDO - Physical exam General appearance: no acute distress HEENT: Other (Head and neck swelling) Lungs: Normal air movement Breasts: deferred Heart: Regular rate Gastrointestinal: normal Female Genitourinary: deferred Rectal Exam: deferred Extremities: abnormal (Left arm fistula with multiple pseudoaneurysms) Neurological: Normal speech, Normal tone - Brief post op/procedure progress note Date of procedure: 10/14/20 Pre-op diagnosis: Central venous stenosis, malfunctioning dialysis access Post-op diagnosis: same Procedure: Left upper arm fistulogram with central and peripheral venoplasty Anesthesia: local Surgeon: SANJEEV COLUNGA Estimated blood loss: minimal Pathology: none Condition: stable - Disposition Condition at discharge: Good Disposition: 01 HOME / SELF CARE / HOMELESS Short Stay Discharge Plan Activity: advance as tolerated Weight Bearing Status: Weight Bear as Tolerated Diet: regular Wound: keep clean and dry, per your surgeon's advice Follow up with: BENIGNO ABEL MD [Primary Care Provider] - 7 Days
[2020-10-14] MEDS ORDERED: MIDAZOLAM 2 MG/2 ML INJ ONE (15:19)
[2020-10-14] MEDS ORDERED: fentaNYL 100 MCG/2 ML INJ ONE (15:19)
[2020-10-14] MEDS ORDERED: HEPARIN 10,000 UNITS/10 ML VIAL ONE (15:21)
[2020-10-14] MEDS ORDERED: LIDOCAINE (2%) 20 MG/1 ML VIAL 20 ML MDV INFILTRATI ONE (15:24)
[2020-10-14] MEDS ORDERED: HEPARIN/NS 5000 UNIT/500ML 500 ML IR ONE ×2 (15:28→16:03)
[2020-10-14] MEDS ORDERED: ceFAZolin/Water 2 GM/20 ML 2 GM/20 ML SYRINGE IV ONE (15:28)
--- NOTE | 2020-10-14 16:26 | Operative Report ---
Operative Report Operative Report: Exam: Left upper arm fistulogram with central and peripheral venoplasty Clinical indication: Patient with history of end-stage renal disease on hemodialysis through a left upper arm brachiocephalic fistula with cephalic arch and central venous stenosis Date: 10/14/2020 Procedure: Following an explanation of the risks, benefits and alternatives; written informed consent was obtained. The patient was brought to the angiographic suite and placed in supine position on the examination table. Initial ultrasound evaluation of the fistula demonstrated multiple large pseudoaneurysms. A palpable thrill was present throughout each. The smallest inferior most pseudoaneurysm was chosen for cannulation. Under ultrasound guidance, a 7 cm 21-gauge needle was advanced into the fistula. A 0.018 guidewire was advanced centrally. The needle was removed and a microsheath placed. A 0.018 guidewire was exchanged for a 0.035 guidewire and the micro sheath exchanged for a 7 Malagasy vascular sheath. A vertebral catheter was utilized over the guidewire to manipulate the guidewire centrally given the tortuosity of the fistula. The guidewire was exchanged for an advantage guidewire which was advanced into the proximal right atrium. The 7 Malagasy access sheath was exchanged for a 7 Malagasy 23 cm sheath to remove some of the tortuosity. Contrast was injected and imaging obtained at multiple locations. This demonstrates no significant stenosis involving the SVC, left innominate, left subclavian and left cephalic vein. Attempts to remove the tortuosity within the body of the fistula were performed using 8 mm x 40 mm balloon without significant reduction of the tortuosity. The central veins and peripheral veins were treated using 12 mm x 40 mm balloon insufflated to 2 to 5 kostas at multiple locations for 10 to 20 seconds throughout the length of the central venous system from the SVC to the cephalic arch. Post intervention imaging demonstrated improved luminal flow throughout the cephalic arch and central veins. At this point, the catheters, guidewires and sheaths were removed and hemostasis achieved using a 3-0 Vicryl suture, manual compression and Dermabond. Sterile dressing was applied. The patient tolerated the procedure well. There were no immediate postprocedure complications. A minimal amount of conscious sedation was performed under the guidance of radiologic nursing. Continuous cardiopulmonary monitoring was utilized. Impression: 1) Left upper extremity fistulogram demonstrating significant stenosis within the SVC, left innominate vein, left subclavian vein and left cephalic arch. Multiple pseudoaneurysms are present within the fistula. 2) Venoplasty of the central veins and cephalic arch using a 12 mm x 40 mm balloon with brisk flow and luminal flow at the conclusion of the procedure. The patient will return when she experiences recurrent swelling for additional central venoplasty.
[2020-10-14 17:01] VITALS: BP 166/106
== END 2020-10-14 17:40 | disposition home or self-care (01) ==
LOC: CATH 10:14
PROVIDERS: ATTEND Radiology Diagnostic Radiology
DX: I12.0 Hypertensive chronic kidney disease with stage 5 chronic kidney disease or end stage renal disease (principal); N18.6 End stage renal disease; E78.00 Pure hypercholesterolemia, unspecified; K21.9 Gastro-esophageal reflux disease without esophagitis; I87.1 Compression of vein; F41.9 Anxiety disorder, unspecified; Z79.82 Long term (current) use of aspirin; Z79.899 Other long term (current) drug therapy; Z98.890 Other specified postprocedural states
CPT/HCPCS: 36415; 36902; 84132; C1725; C1769; C1894; J0690; J1644; J2250; J3010; J7040; Q9967

== ENCOUNTER 2021-05-03 07:37 | Day surgery (SDC) | payer MEDICARE ==
[2021-05-03 08:30] LABS: Hematocrit 32.5 % (30.3-42.9); Hemoglobin 10.3 gm/dl (10.1-14.3); Mean Corpuscular HGB Conc 32 % (30-34); Mean Corpuscular Volume 85 fl (79-97); Platelet Count 108 K/mm3 (140-440); Red Blood Count 3.81 M/mm3 (3.65-5.03)
[2021-05-03 08:33] LABS: Red Cell Distribution Width 20.5 % (13.2-15.2)
[2021-05-03 08:41] LABS: INR 1.03 (0.87-1.13)
[2021-05-03 08:42] LABS: Calcium 9.7 mg/dL (8.4-10.2); Partial Thromboplastin Time 28.3 Sec. (24.2-36.6)
[2021-05-03] MEDS ORDERED: SODIUM CHLORIDE 0.9% 500 ML 500 ML IV SCH (09:00)
[2021-05-03] MEDS ORDERED: diphenhydrAMINE 50 MG/ML VIAL ONE (09:29)
[2021-05-03] MEDS ORDERED: methylPREDNISolone Sod Succinate 125 MG/2 ML INJ ONE (09:30)
[2021-05-03] MEDS ORDERED: FAMOTIDINE 20 MG/2 ML INJ IV ONE ×2 (09:30→09:51)
[2021-05-03] MEDS ORDERED: diphenhydrAMINE 50 MG/ML VIAL IV ONE (09:52)
[2021-05-03] MEDS ORDERED: methylPREDNISolone Sod Succinate 125 MG/2 ML INJ IV ONE (09:52)
[2021-05-03] MEDS ORDERED: HEPARIN/NS 5000 UNIT/500ML 1,000 ML IR ONE (09:54)
[2021-05-03] MEDS ORDERED: LIDOCAINE (2%) 20 MG/1 ML VIAL 20 ML MDV INFILTRATI ONE (09:54)
[2021-05-03] MEDS ORDERED: ceFAZolin/Water 2 GM/20 ML 2 GM/20 ML SYRINGE IV ONE (09:55)
[2021-05-03] MEDS ORDERED: LIDOCAINE (1%) 10 MG/1 ML VIAL 20 ML MDV ONE (09:55)
--- NOTE | 2021-05-03 10:07 | Short Stay Summary ---
Short Stay Documentation Date of service: 05/03/21 Narrative H&P: 55-year-old female with SVC syndrome and end-stage renal disease with AV fistula malfunction. - History Principal diagnosis: SVC syndrome H&P: obtained from office Past Medical History: dialysis Social history: no significant social history - Allergies and Medications Current Medications: Allergies No Known Allergies Allergy (Verified 07/19/16 12:33) Home Medications Medication Instructions Recorded Confirmed Last Taken Type ALPRAZolam [Xanax TAB] 0.25 mg PO DAILY 07/19/16 05/03/21 04/30/21 History 1 TAB Albuterol Sulfate [Albuterol 2 puff INHALATION 4XD PRN 05/23/18 05/03/21 04/11/21 History Sulfate Hfa] 2 PUFF Aspirin EC [Halfprin EC] 81 mg PO DAILY 05/23/18 05/03/21 04/30/21 History 1 TAB lisinopriL [Prinivil] 5 mg PO DAILY 05/23/18 05/03/21 04/30/21 History 1 TAB traMADoL [Ultram 50 MG tab] 50 mg PO Q6H 05/23/18 05/03/21 05/02/21 History 1 TAB Hydralazine HCl 50 mg PO DAILY 01/28/19 05/03/21 05/02/21 History 1 TAB NIFEdipine XL [Procardia Xl] 60 mg PO DAILY 01/28/19 05/03/21 04/30/21 History 1 TAB carvediloL [Coreg] 25 mg PO BID 01/28/19 05/03/21 05/02/21 History 2 TAB Active Medications Sodium Chloride (Nacl 0.9% 500 Ml) 500 mls @ 50 mls/hr IV DIRECT LUIS ARMANDO Stop: 05/03/21 20:00 - Physical exam General appearance: no acute distress HEENT: Other (Head and neck swelling) Lungs: Normal air movement, Other (Coughing intermittently) Gastrointestinal: normal Extremities: normal temperature, normal color - Brief post op/procedure progress note Date of procedure: 05/03/21 Pre-op diagnosis: SVC syndrome Post-op diagnosis: same Procedure: Peripheral dialysis access angioplasty Central dialysis access angioplasty Anesthesia: local Surgeon: SANJEEV JASSO Estimated blood loss: minimal Condition: stable - Hospital course Hospital course: Patient tolerated the procedure well. No immediate postprocedural complications. - Disposition Condition at discharge: Stable Disposition: 01 HOME / SELF CARE / HOMELESS - Discharge Diagnoses (1) ESRD (end stage renal disease) on dialysis Status: Acute (2) Malfunction of arteriovenous shunt Status: Acute (3) SVC syndrome Status: Acute Short Stay Discharge Plan Activity: advance as tolerated Weight Bearing Status: Weight Bear as Tolerated Wound: keep clean and dry Additional Instructions: Follow up with primary medical doctor in 1 week , return to ER for medical emergency. Follow up with: BENIGNO ABEL MD [Primary Care Provider] - 7 Days Forms: AVG Arteriogram D/CInstruction
--- NOTE | 2021-05-03 10:07 | Operative Report ---
Operative Report Operative Report: EXAM: 1. Ultrasound guided access of the AV fistula towards the venous outflow 2. Fistulogram. 3. Selection of the IVC. 4. Angioplasty of the superior SVC and peripheral left innominate vein with a 10 mm x 4 cm angioplasty balloon and 12 mm x 60 mm angioplasty balloon 5. 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 DEVICES: 10 mm x 4 cm angiosculpt angioplasty balloon 12 mm x 6 cm angioplasty balloon PROCEDURE: The risks, benefits, and alternatives of the procedure were discussed and w ritten informed consent was obtained. The patient was transported in stable condition to the angiography suite. The patient's left arm AV fistula was assessed by ultrasound and was patent. The patient was prepped and draped in a sterile fashion. Under ultrasound guidance, the left arm AV brachiocephalic fistula was accessed with a 21-gauge micropuncture needle. The area was anesthetized prior to access. 0.018 inch wire was advanced through the micropuncture needle into the fistula and then the needle was exchanged for a 5 Latvian transitional dilator. The inner dilator and wire were removed and a 0.035 inch wire was advanced through the venous outflow. The transitional dilator was exchanged for a 7 Latvian short sheath. Fistulogram was performed of the venous outflow and central veins. The central cephalic vein had a 40% narrowing (at the cephalic arch). There were numerous collaterals arising from the left subclavian and innominate vein. The left subclavian and mid and peripheral innominate vein were patent. The central portion of the left innominate vein and the superior portion of the SVC was 90% narrowed. The rest of the SVC was patent. 0.035 inch wire was passed into the IVC and a V 18 wire was passed into the IVC to act as a cutting wire. 10 mm x 4 cm cutting angioplasty balloon was used to perform cutting angioplasty of the SVC and central left innominate vein. Afterwards, the V 18 wire was removed. 12 mm x 6 cm angioplasty balloon was used to perform angioplasty of the SVC and central left innominate vein and then the cephalic arch. Digital subtraction angiography demonstrated 20-30% residual narrowing of the left innominate vein/superior portion of the SVC and 20% residual narrowing of the cephalic arch. The wire was removed. The sheath was then removed. Hemostasis was achieved with slight manual compression. Pressure bandage applied. The patient was transported from the angiography suite to the floor in stable condition. IMPRESSION: 1. Successful central dialysis access angioplasty. 2. Successful peripheral dialysis access angioplasty
[2021-05-03 12:05] VITALS: BP 169/105
== END 2021-05-03 07:38 | disposition home or self-care (01) ==
LOC: CATHLABREC 07:37
PROVIDERS: ATTEND Radiology Diagnostic Radiology
DX: T82.591A Other mechanical complication of surgically created arteriovenous shunt, initial encounter (principal); I12.0 Hypertensive chronic kidney disease with stage 5 chronic kidney disease or end stage renal disease; N18.6 End stage renal disease; I87.1 Compression of vein; E78.00 Pure hypercholesterolemia, unspecified; G47.30 Sleep apnea, unspecified; K21.9 Gastro-esophageal reflux disease without esophagitis; D64.9 Anemia, unspecified; Z79.899 Other long term (current) drug therapy; Z79.82 Long term (current) use of aspirin; Z87.01 Personal history of pneumonia (recurrent); Z98.890 Other specified postprocedural states; Y82.8 Other medical devices associated with adverse incidents; Y92.89 Other specified places as the place of occurrence of the external cause
CPT/HCPCS: 36415; 36902; 36907; 80048; 85027; 85610; 85730; C1725; C1751; C1769; C1894; J0690; J1200; J1644; J2930; J3490; J7040; Q9967

== ENCOUNTER 2021-06-03 06:27 | Day surgery (SDC) | payer MEDICARE ==
[2021-06-03] MEDS ORDERED: SODIUM CHLORIDE 0.9% 500 ML 500 ML IV SCH (07:00)
--- NOTE | 2021-06-03 08:18 | Short Stay Summary ---
Short Stay Documentation Date of service: 06/03/21 Narrative H&P: The patient is a 55-year-old female with a history of end-stage renal disease who was on hemodialysis through a left arm arteriovenous fistula. She has a known history of central venous occlusion and presented with complaints of severe left arm swelling as well as facial swelling with some difficulty breathing. She is in need of a diagnostic fistulogram with possible intervention. She was given the risk, benefits, and alternative procedures and consented to the procedure. - History Past Medical History: dialysis, ESRD, heart failure, hypertension, hyperlipidemia, other (Sleep apnea, superior vena cava syndrome) Past Surgical History: Other (Creation of left arm arteriovenous fistula) Social history: no significant social history - Allergies and Medications Current Medications: Allergies No Known Allergies Allergy (Verified 07/19/16 12:33) Home Medications Medication Instructions Recorded Confirmed Last Taken Type ALPRAZolam [Xanax TAB] 0.25 mg PO DAILY 07/19/16 06/03/21 06/03/21 06:00 History Albuterol Sulfate [Albuterol 2 puff INHALATION 4XD PRN 05/23/18 06/03/21 05/28/21 History Sulfate Hfa] 2 puff Aspirin EC [Halfprin EC] 81 mg PO DAILY 05/23/18 06/03/21 06/01/21 History 81 mg traMADoL [Ultram 50 MG tab] 50 mg PO Q6H 05/23/18 06/03/21 05/27/21 History 50 mg Hydralazine HCl 50 mg PO DAILY 01/28/19 06/03/21 06/03/21 06:00 History 50 mg NIFEdipine XL [Procardia Xl] 60 mg PO DAILY 01/28/19 06/03/21 06/02/21 History 50 mg carvediloL [Coreg] 25 mg PO BID 01/28/19 06/03/21 06/02/21 History 25 mg Atorvastatin [Lipitor] 80 mg PO HS 06/03/21 06/03/21 06/02/21 History 80 mg Cinacalcet HCl [Sensipar] 120 mg PO BID 06/03/21 06/03/21 06/02/21 History 120 mg Citalopram Hydrobromide 1 tab PO DAILY 06/03/21 06/03/21 06/03/21 06:00 History [Citalopram HBr] 1 tab Folic Acid/Vit B Complex and C 800 mg PO DAILY 06/03/21 06/03/21 06/02/21 History [Dialyvite 800 Chewable Wafer] 800 mg Active Medications Sodium Chloride (Nacl 0.9% 500 Ml) 500 mls @ 50 mls/hr IV DIRECT LUIS ARMANDO Stop: 06/03/21 18:00 - Physical exam General appearance: no acute distress Lungs: Normal air movement, Other (Breathing is somewhat labored secondary to severe head and tongue swelling) Heart: Regular rate Gastrointestinal: normal Female Genitourinary: deferred Rectal Exam: deferred Extremities: abnormal (Left arm arteriovenous fistula is significantly dilated, increased pulsatility of the left arm AV fistula) - Brief post op/procedure progress note Date of procedure: 06/03/21 Pre-op diagnosis: Complications of Dialysis Access Post-op diagnosis: same Procedure: 1. Access Left Arm AV Fistula with 7 Welsh Sheath Venous 2. Diagnostic Fistulogram with Central Venogram 3. Angioplasty and Stent of Left Arm AV Fistula With 10 x 40 [place] Balloon and 10 x 60 Covera Stent Graft 4. Angioplasty of Left Innominate Vein With 12 x 40 Conquest Balloon 5. Radiologic Supervision with Interpretation Anesthesia: local Surgeon: JULIO SCHMITT Estimated blood loss: minimal Pathology: none Condition: stable - Disposition Condition at discharge: Good Disposition: 01 HOME / SELF CARE / HOMELESS Short Stay Discharge Plan Activity: other (Okay to use the fistula for dialysis.) Wound: open to air, keep clean and dry
[2021-06-03] MEDS ORDERED: LIDOCAINE (2%) 20 MG/1 ML VIAL 50 ML MDV INFILTRATI ONE (08:23)
[2021-06-03] MEDS ORDERED: HEPARIN 10,000 UNITS/10 ML VIAL ONE (08:23)
[2021-06-03] MEDS ORDERED: HEPARIN/NS 5000 UNIT/500ML 500 ML IR ONE (08:23)
[2021-06-03] MEDS ORDERED: VERAPAMIL 5 MG/2 ML INJ ONE (08:23)
[2021-06-03] MEDS ORDERED: hydrALAZINE 20 MG/1 ML INJ ONE (09:17)
--- NOTE | 2021-06-03 10:09 | Operative Report ---
Operative Report Operative Report: Date of Procedure: 06/03/2021 Pre-operative Diagnosis: Complications of Dialysis Access Post-operative Diagnosis: Same Procedure(s): 1. Access Left Arm AV Fistula with 7 Emirati Sheath Venous 2. Diagnostic Fistulogram with Central Venogram 3. Angioplasty and Stent of Left Arm AV Fistula With 10 x 40 [place] Balloon and 10 x 60 Covera Stent Graft 4. Angioplasty of Left Innominate Vein With 12 x 40 Conquest Balloon 5. Radiologic Supervision with Interpretation Surgeon: Lopez Menard M.D. Licensed Home Inspector: None Anesthesia: 2% Lidocaine EBL: Minimal Counts: Correct Complications: None Condition: Stable Specimen: None Indication: The patient is a 55-year-old female with a history of end-stage renal disease and known supra vena cava syndrome. She presented with complaints of left arm and facial swelling with difficulty breathing. She is in need of a diagnostic fistulogram with possible intervention. She was given the risk, benefits, and alternative procedures and consented to the procedure. Angiographic Findings: The diagnostic fistulogram revealed a diffusely enlarged and left brachi ocephalic arteriovenous fistula. There was approximately 85% stenosis in the mid fistula and approximately 75% stenosis of the cephalic arch. There was 90% stenosis of the proximal innominate vein. The remainder the central venous system appeared to be patent without significant flow-limiting stenosis. After intervention the residual stenosis within the cannulation zone of the fistula was approximately 40%. The residual stenosis within the cephalic arch was reduced to approximately 20%. The residual stenosis within the innominate vein was reduced to less than 15%. Description of Procedure: The patient was brought to the [facility] and laid in supine position. After a timeout was performed her left arm was prepped and draped in normal sterile fashion. 2% lidocaine was used anesthetize skin and soft tissue overlying the fistula, near the arterial inflow, and a 21-gauge micropuncture needle was used to access the fistula towards the venous outflow. A 0.018 micropuncture wire was advanced into the fistula and after removing the needle a 7 Emirati sheath was placed by Seldinger technique. A diagnostic fistulogram with central venogram was performed to previously described findings. I made multiple attempts to advance a catheter and wire through the areas of stenosis within the fistula and was eventually able to advance the wire into the cephalic arch and central venous system however I was unable to advance the catheter over the wire. I decided to perform angioplasty of the cannulation zone of the fistula as well as the cephalic arch using a 10 x 40 [place] Balloon. The stenosis within the cannulation zone was reduced to approximately 40% however there was near complete recoil of the stenosis within the cephalic arch however I was able to advance the advantage wire and [place]red[place] cross catheter into the central venous system and eventually into the inferior vena cava. I exchanged my 7 Emirati 4 cm sheath for a 7 Emirati 23 cm sheath secondary to difficulty advancing the catheter into the central venous system. I then performed angioplasty of the stenosis within the innominate vein using a 10 x 40 EverCross balloon which resulted in approximately 80% residual stenosis. I then exchanged the 7 Emirati sheath for an 8 Emirati 45 cm destination sheath and then performed angioplasty of the innominate vein using a 12 x 40 conquest balloon which resulted in less than 15% residual stenosis. I then uses balloon to perform angioplasty of the cephalic arch which resulted in near total occlusion of the arch and increased pulsatility of the fistula. I advanced a 10 x 60 Covera stent graft into the cephalic arch and then postdilated it with a 10 x 40 [place] Balloon. This resulted in approximately 20% residual stenosis. At that point I remove the balloon and wire and used a 2-0 chromic in pursestring fashion to close the entry site after removing the sheath. A sterile dressing was then applied to the entry site and the patient was transported to the recovery area in stable condition.
[2021-06-03 10:47] VITALS: BP 168/91
== END 2021-06-03 11:00 | disposition home or self-care (01) ==
LOC: CATHLABREC 06:27
PROVIDERS: ATTEND Surgery Vascular Surgery
DX: T82.591A Other mechanical complication of surgically created arteriovenous shunt, initial encounter (principal); I87.1 Compression of vein; I13.2 Hypertensive heart and chronic kidney disease with heart failure and with stage 5 chronic kidney disease, or end stage renal disease; I50.9 Heart failure, unspecified; N18.6 End stage renal disease; G47.30 Sleep apnea, unspecified; E78.5 Hyperlipidemia, unspecified; K21.9 Gastro-esophageal reflux disease without esophagitis; D64.9 Anemia, unspecified; F41.9 Anxiety disorder, unspecified; Z72.89 Other problems related to lifestyle; Z98.890 Other specified postprocedural states; Z79.899 Other long term (current) drug therapy; Z87.01 Personal history of pneumonia (recurrent); Z79.82 Long term (current) use of aspirin; Y82.8 Other medical devices associated with adverse incidents; Y92.89 Other specified places as the place of occurrence of the external cause
CPT/HCPCS: 36415; 36903; 37248; 82962; 84132; C1725; C1751; C1769; C1874; C1887; C1894; J0360; J1644; J3490; J7040; 37249; Q9967

== ENCOUNTER 2021-08-30 07:06 | Day surgery (SDC) | payer MEDICARE ==
[2021-08-30] MEDS ORDERED: SODIUM CHLORIDE 0.9% 500 ML 500 ML IV SCH (08:00)
[2021-08-30] MEDS ORDERED: HEPARIN/NS 5000 UNIT/500ML 1,000 ML IR ONE (08:27)
[2021-08-30] MEDS ORDERED: MIDAZOLAM 2 MG/2 ML INJ ONE (08:28)
[2021-08-30] MEDS ORDERED: fentaNYL 100 MCG/2 ML INJ ONE (08:28)
[2021-08-30] MEDS ORDERED: HEPARIN 10,000 UNITS/10 ML VIAL ONE (08:28)
[2021-08-30 08:32] LABS: Hematocrit 31.6 % (30.3-42.9); Hemoglobin 9.8 gm/dl (10.1-14.3); Mean Corpuscular HGB Conc 31 % (30-34); Mean Corpuscular Volume 91 fl (79-97); Platelet Count 120 K/mm3 (140-440); Red Blood Count 3.47 M/mm3 (3.65-5.03)
[2021-08-30 08:34] LABS: Red Cell Distribution Width 20.2 % (13.2-15.2)
[2021-08-30] MEDS: LIDOCAINE 2%/EPINEPHRINE 1:200,000 VIAL (20 ML) INFILTRATI ONE ×2 (08:34→10:40)
[2021-08-30] MEDS: ceFAZolin/Water 2 GM/20 ML 2 GM/20 ML SYRINGE IV ONE ×2 (08:35→10:31)
[2021-08-30 08:42] LABS: Calcium 8.7 mg/dL (8.4-10.2)
[2021-08-30 08:47] LABS: INR 0.95 (0.87-1.13)
[2021-08-30 08:48] LABS: Partial Thromboplastin Time 28.3 Sec. (24.2-36.6)
[2021-08-30] MEDS ORDERED: methylPREDNISolone Sod Succinate 125 MG/2 ML INJ ONE (09:45)
[2021-08-30] MEDS ORDERED: FAMOTIDINE 20 MG/2 ML INJ IV ONE ×2 (09:46→09:59)
[2021-08-30] MEDS ORDERED: diphenhydrAMINE 50 MG/ML VIAL ONE (09:47)
[2021-08-30] MEDS ORDERED: methylPREDNISolone Sod Succinate 125 MG/2 ML INJ IV ONE (10:00)
[2021-08-30] MEDS ORDERED: diphenhydrAMINE 50 MG/ML VIAL IV ONE (10:01)
[2021-08-30 12:26] VITALS: BP 170/100
--- NOTE | 2021-08-30 13:28 | Short Stay Summary ---
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 - History Principal diagnosis: SVC syndrome, AVF malfunction H&P: obtained from office - Allergies and Medications Current Medications: Allergies No Known Allergies Allergy (Verified 07/19/16 12:33) Home Medications Medication Instructions Recorded Confirmed Last Taken Type ALPRAZolam [Xanax TAB] 0.25 mg PO DAILY 07/19/16 06/03/21 08/29/21 History 1 TAB Albuterol Sulfate [Albuterol 2 puff INHALATION 4XD PRN 05/23/18 08/30/21 08/24/21 History Sulfate Hfa] 1 TAB Aspirin EC [Halfprin EC] 81 mg PO DAILY 05/23/18 08/30/21 08/29/21 History 1 TAB traMADoL [Ultram 50 MG tab] 50 mg PO Q6H 05/23/18 08/30/21 08/29/21 History 1 TAB Hydralazine HCl 50 mg PO DAILY 01/28/19 08/30/21 08/30/21 History 1 TAB NIFEdipine XL [Procardia Xl] 60 mg PO DAILY 01/28/19 08/30/21 08/29/21 History 1 TAB carvediloL [Coreg] 25 mg PO BID 01/28/19 08/30/21 08/29/21 History Atorvastatin [Lipitor] 80 mg PO HS 06/03/21 08/30/21 06/02/21 History 80 mg Cinacalcet HCl [Sensipar] 120 mg PO BID 06/03/21 08/30/21 08/29/21 History 1 TAB Citalopram Hydrobromide 1 tab PO DAILY 06/03/21 08/30/21 08/28/21 History [Citalopram HBr] 1 TAB Active Medications Sodium Chloride (Nacl 0.9% 500 Ml) 500 mls @ 50 mls/hr IV DIRECT LUIS ARMANDO Stop: 08/30/21 15:00 Last Admin: 08/30/21 08:35 Dose: 300 mls - Physical exam General appearance: no acute distress HEENT: Other (Head and neck swelling) Lungs: Other (Accessory muscle use) Gastrointestinal: normal Extremities: abnormal (Swelling of head and left arm, thrill in left AV fistula) - Brief post op/procedure progress note Date of procedure: 08/30/21 Pre-op diagnosis: SVC syndrome, AV fistula malfunction Post-op diagnosis: same Procedure: 1. Ultrasound-guided access of the left arm cephalic vein (brachial artery cephalic vein AV fistula). 2. Fistulogram. 3. Angioplasty of the SVC and left innominate vein with a 12 mm x 60 mm angioplasty balloon 4. Stenting of the left distal innominate vein with a 13.5 mm x 80 mm fluency stent graft postdilated with a 12 mm x 40 mm conquest and 14 mm x 40 mm [place] Anesthesia: local Surgeon: SANJEEV JASSO Estimated blood loss: minimal Condition: stable - Hospital course Hospital course: The patient was kept for a few hours to monitor the access site which had no issues. She was discharged in stable condition. - Disposition Condition at discharge: Stable Disposition: 01 HOME / SELF CARE / HOMELESS - Discharge Diagnoses (1) ESRD (end stage renal disease) on dialysis Status: Acute (2) Malfunction of arteriovenous shunt Status: Acute (3) SVC syndrome Status: Acute Short Stay Discharge Plan Activity: advance as tolerated Weight Bearing Status: Weight Bear as Tolerated Diet: renal Wound: keep clean and dry Additional Instructions: Follow up with primary Medical doctor in 1 week, return to Emergency Room for medical emergency. Follow up with: BENIGNO ABEL MD [Primary Care Provider] - 7 Days Forms: AVG Arteriogram D/CInstruction
--- NOTE | 2021-08-30 15:05 | Operative Report ---
Operative Report Operative Report: EXAM: 1. Ultrasound-guided access of the left arm cephalic vein (brachial artery cephalic vein AV fistula). 2. Fistulogram. 3. Angioplasty of the SVC and left innominate vein with a 12 mm x 60 mm angioplasty balloon 4. Stenting of the left distal innominate vein with a 13.5 mm x 80 mm fluency stent graft postdilated with a 12 mm x 40 mm conquest and 14 mm x 40 mm [place] DATE: 08/30/2021 FIRST RESPONDER: SANJEEV JASSO MD INDICATION: SVC syndrome with AV fistula malfunction MEDICATIONS: Please see nursing report for full details. DEVICES: 12 mm x 6 cm angioplasty balloon 12 mm x 4 cm Conquest balloon 14 mm x 4 cm [place] balloon 13.5 mm x 8 cm Fluency stentgraft CONTRAST: Please see operative report for full details PROCEDURE: The risks, benefits, and alternatives of the procedure were discussed and written informed consent was obtained. The patient was transported in stable condition to the angiography suite. The patient's left arm AV fistula was assessed by ultrasound and was patent. The patient was prepped and draped in a sterile fashion. Under ultrasound guidance, the left arm AV brachiocephalic fistula was accessed with a 21-gauge micropuncture needle. The area was anesthetized prior to access. 0.018 inch wire was advanced through the micropuncture needle into the fistula and then the needle was exchanged for a 5 [place] transitional dilator. The inner dilator and wire were removed and a 0.035 inch wire was advanced through the venous outflow. The transitional dilator was exchanged for a 7 [place] short sheath. Fistulogram was performed of the venous outflow and central veins. The central cephalic vein was patent. There was a patent stent graft noted. There were numerous collaterals arising from the left subclavian and innominate vein. The left subclavian and mid and peripheral innominate vein were patent. The central portion of the left innominate vein and the superior portion of the SVC was 90% narrowed. The rest of the SVC was patent. 0.035 inch wire was passed into the IVC. 12 mm x 6 cm angioplasty balloon was used to perform angioplasty of the SVC and central left innominate vein. Digital subtraction angiography demonstrated 50% residual narrowing of the left innominate vein/superior portion of the SVC. The sheath was then upsized over the stiff wire (Glidewire advantage) to a 10 [place] sheath and a 13.5 x 80 mm fluency stent graft was deployed over the superior portion of the SVC and left innominate vein. This was postdilated with a 12 mm x 40 mm conquest balloon and subsequently a 14 mm x 40 mm conquest balloon. Digital subtraction angiography was performed demonstrating less than 10% residual narrowing of the left innominate vein and superior portion of the SVC. All wires and catheters were removed. The site was closed with 3-0 Vicryl and then the sheath was removed. Hemostasis was achieved with slight manual compress ion. Pressure bandage applied. The patient was transported from the angiography suite to the floor in stable condition. IMPRESSION: 1. Successful dialysis access stenting and angioplasty
== END 2021-08-30 07:07 | disposition home or self-care (01) ==
LOC: CATHLABREC 07:06
PROVIDERS: ATTEND Radiology Diagnostic Radiology
DX: T82.898A Other specified complication of vascular prosthetic devices, implants and grafts, initial encounter (principal); T82.591A Other mechanical complication of surgically created arteriovenous shunt, initial encounter; I12.0 Hypertensive chronic kidney disease with stage 5 chronic kidney disease or end stage renal disease; N18.6 End stage renal disease; I87.1 Compression of vein; I87.323 Chronic venous hypertension (idiopathic) with inflammation of bilateral lower extremity; E78.00 Pure hypercholesterolemia, unspecified; G47.30 Sleep apnea, unspecified; K21.9 Gastro-esophageal reflux disease without esophagitis; F41.9 Anxiety disorder, unspecified; D64.9 Anemia, unspecified; Z79.899 Other long term (current) drug therapy; Z79.82 Long term (current) use of aspirin; Z72.89 Other problems related to lifestyle; Z98.890 Other specified postprocedural states; Y82.8 Other medical devices associated with adverse incidents; Y92.89 Other specified places as the place of occurrence of the external cause
CPT/HCPCS: 36415; 36903; 80048; 85027; 85610; 85730; C1725; C1751; C1769; C1874; C1894; J0690; J1200; J1644; J2250; J2930; J3010; J3490; J7040; Q9967